=== PATIENT | male | born 1990 | race Caucasian/White ===

== ENCOUNTER 2016-11-28 14:30 | Day surgery (SDC) | payer OTHER ==
[~2016-11-28] VITALS: Ht 172.7 cm; Wt 59.9 kg
[2016-11-28] VITALS (7 sets, daily range): BP systolic 116–128; BP diastolic 58–81; PULSE 45–97; TEMP 97.7–98
[2016-11-28] MEDS ORDERED: IBU800 M1 PO (15:09)
[2016-11-28] MEDS ORDERED: NORCO 325 MG-51 TAB PO (15:10)
[2016-11-28] MEDS ORDERED: TYLENOL 325MG325 MG PO (15:10)
== END 2016-11-28 20:28 | disposition home or self-care (01) ==
LOC: SDCO 14:30 → SURG 18:10 → SDCO 20:28
DX: N20.1 Calculus of ureter (principal)
CPT/HCPCS: OP; C1769; J0690; J2310; J2704; J3010; J7120; Q9967

== ENCOUNTER 2017-06-18 12:01 | Day surgery (SDC) | payer OTHER ==
[~2017-06-18] VITALS: Ht 172.7 cm; Wt 59.3 kg
[~2017-06-18 12:01] MED LIST: IBU800 M1 PO; NORCO 325 MG-51 TAB PO; TYLENOL 325MG325 MG PO
[2017-06-18] MEDS ORDERED: UROXATRAL10 M1 PO (12:25)
[2017-06-18] MEDS ORDERED: ZOFRAN 4MG T4 MG/TAB PO (12:27)
[2017-06-18] MEDS ORDERED: TYLENOL 325MG325 MG PO (12:28)
[2017-06-18 12:58] VITALS: BP 112/74; PULSE 46; TEMP 98.1
[2017-06-18 16:30] VITALS: BP 107/67; PULSE 50; TEMP 97.4
[2017-06-18 16:45] VITALS: BP 116/81; PULSE 64
[2017-06-18 17:00] VITALS: BP 127/85; PULSE 47
[2017-06-18 17:13] VITALS: BP 103/58; PULSE 58; TEMP 97.5
== END 2017-06-18 17:05 | disposition home or self-care (01) ==
LOC: SDCO 12:01
DX: N20.1 Calculus of ureter (principal); Z80.9 Family history of malignant neoplasm, unspecified; Z87.442 Personal history of urinary calculi
CPT/HCPCS: C1769; J0690; J1100; J2250; J2405; J2704; J3010; J7120; Q9967